=== PATIENT | male | born 1955 | race Caucasian/White ===

== ENCOUNTER → 2018-09-16 | Outpatient (CLI) | payer BC ==
[~2018-09-16] MED LIST: BACL10 PO; CLON1 PO; ELOCON15 GM TOP; IBUP800 PO; LISI5 PO; Metformin HCl500 MG PO; Norco 10-325 T1 EACH PO; POTASSIUM99 MG PO; SIMV10 PO
== END | disposition home or self-care (01) ==
LOC: PLD 10:20 → LAB SHORT 10:20
DX: D04.22 Carcinoma in situ of skin of left ear and external auricular canal (principal)
CPT/HCPCS: 88305

== ENCOUNTER 2019-09-18 09:37 | Day surgery (SDC) | payer BC, MEDICARE ==
[~2019-09-18] VITALS: Ht 177.8 cm; Wt 94.5 kg
[2019-09-18] MEDS ORDERED: LOSA25 PO (09:59)
[2019-09-18] MEDS ORDERED: GABA100 PO (10:01)
[2019-09-18] MEDS ORDERED: CLOP75 PO (15:51)
--- NOTE | 2019-09-18 17:28 | NUR ---
DISCHARGE GONE OVER WITH PT AND , BOTH VERBALIZE UNDERSTANDING OF INSTRUCTIONS. PT UP AND WALKING L GROIN SITE REMAINS SOFT AND NO BLEEDING. SALINE LOCK OUT WITH CATHETER INTACT. PT TO PRIVATE VEHICLE WITH ASSIST OF 1 STAFF.
== END 2019-09-18 23:20 | disposition home or self-care (01) ==
LOC: MHTC 09:37
DX: I70.213 Atherosclerosis of native arteries of extremities with intermittent claudication, bilateral legs (principal); Z88.2 Allergy status to sulfonamides; Z88.0 Allergy status to penicillin; Z88.8 Allergy status to other drugs, medicaments and biological substances
CPT/HCPCS: 37221; 37227; 37228; 75625; 75716; 75774; 85347; 99152; 99153; C1714; C1725; C1760; C1769; C1874; C1876; C1884; C1887; C1894; C2623; J1200; J1644; J2060; J2250; J2405; J3010; J7030; Q9967

== ENCOUNTER → 2020-08-30 | Outpatient (CLI) | payer MEDICARE ==
[~2020-08-30] MED LIST changes: +CLOP75 PO; +GABA100 PO; +LOSA25 PO
[2020-08-30 12:01] LABS: Source, Urine Voided
[2020-08-30 13:34] LABS: Creatinine, Urine Random 99.7 mg/dL (27.00-270.00)
[2020-08-30 13:36] LABS: Microalb/Creat Ratio UR, Rand 10.933 mg/g (0.000-30.000); Microalbumin, Random Urine 10.9 mg/L (0.000-20.000)
[2020-08-30 14:38] LABS: Appearance, Urine Clear (Clear); Bilirubin, Urine Neg (Neg); Blood, Urine Neg (Neg); Color, Urine Yellow (P-Yellow); Glucose Qualitative, Urine 3+ (Neg); Ketones, Urine Neg (Neg); Leukocyte Esterase, Urine 1+ (Neg); Nitrite, Urine Neg (Neg); Protein, Urine Neg (Neg); Urobilinogen, Urine NORM (Normal)
[2020-08-30 14:46] LABS: Bacteria Not Seen /hpf; Red Blood Cells, Urine Not Seen /hpf (0-2); Squamous Epithelial Cells Rare /hpf (Few); White Blood Cells, Urine 0-2 /hpf (0-5)
[2020-08-30 16:07] LABS: BASOPHILS ABSOLUTE AUTO 0.04 K/mm3 (0.00-0.23); BASOPHILS PERCENT AUTO 1 % (0-2); EOSINOPHILS ABSOLUTE AUTO 0.23 K/mm3 (0.00-0.68); EOSINOPHILS PERCENT AUTO 3 % (0-6); Hematocrit 45.6 % (37.0-53.0); Hemoglobin 14.9 g/dL (13.5-17.5); IMMATURE GRAN ABSOLUTE AUTO 0.01 K/mm3 (0.00-0.10); IMMATURE GRAN PERCENT AUTO 0 % (0-1); LYMPHOCYTES ABSOLUTE AUTO 1.35 K/mm3 (0.84-5.20); LYMPHOCYTES PERCENT AUTO 20 % (21-46); MONOCYTES ABSOLUTE AUTO 0.38 K/mm3 (0.16-1.47); MONOCYTES PERCENT AUTO 6 % (4-13); Mean Corpuscular HGB 30.5 pg (26.0-34.0); Mean Corpuscular HGB Conc 32.7 g/dL (31.5-36.5); Mean Corpuscular Volume 93 fL (80-100); Mean Platelet Volume 10.5 fL (9.1-12.4); NEUTROPHILS PERCENT AUTO 70 % (41-73); Platelet Count 266 K/mm3 (150-400); RDW Coefficient Variation 12.8 % (11.7-14.2); Red Blood Cell Count 4.89 M/mm3 (4.30-5.90); White Blood Cell Count 6.71 K/mm3 (4.00-11.30)
[2020-08-30 16:37] LABS: Alanine Aminotransfer (ALT/SGP 74 U/L (12-78); Albumin, Blood 3.9 g/dL (3.4-5.0); Albumin/Globulin Ratio 1.1 (0.8-1.8); Alk Phos 49 U/L (50-136); Anion Gap 7 mmol/L (6-16); Aspartate Aminotrans (AST/SGOT 37 U/L (12-37); Bilirubin, Total 0.5 mg/dL (0.1-1.0); Blood Urea Nitrogen 21 mg/dL (8-24); Bun/Creatinine Ratio 24.6 (12.0-20.0); CHOL/HDL RATIO 3.2; CO2, Blood 23 mmol/L (21-32); Calcium, Blood 9.2 mg/dL (8.5-10.1); Chloride, Blood 108 mmol/L (98-108); Cholesterol 142 mg/dL (50-200); Creatinine, Blood 0.86 mg/dL (0.60-1.20); Globulin, Blood 3.6 g/dL (2.2-4.0); Glomerular Filtration Rate >60 (60-); Glucose, Blood 249 mg/dL (70-99); HDL Cholesterol 45 mg/dL (>39); LDL/HDL RATIO 1.5; Low Density Lipoprotein Chol 68 mg/dL (0-110); Potassium, Blood 4.4 mmol/L (3.5-5.5); Sodium, Blood 138 mmol/L (136-145); Total Protein, Blood 7.5 g/dL (6.4-8.2); Triglycerides 144 mg/dL (30-160); Very Low Density Lipoprot Chol 28 mg/dL (6-32)
== END ==
LOC: LAB SHORT 09:23 → LAB 09:23
PROVIDERS: Nurse Practitioner Family
DX: E11.65 Type 2 diabetes mellitus with hyperglycemia (principal); E78.00 Pure hypercholesterolemia, unspecified; I10 Essential (primary) hypertension
CPT/HCPCS: 80053; 80061; 81001; 82043; 82570; 84443; 85025

== ENCOUNTER 2021-05-02 08:55 | Day surgery (SDC) | payer MEDICARE ==
[~2021-05-02] VITALS: Ht 180.3 cm; Wt 93.2 kg
[~2021-05-02 08:55] MED LIST changes: +Aspir 8181 MG PO; +EZET10 PO; +GLIP2.5ER PO; +TRAZ50 PO
--- NOTE | 2021-05-02 16:03 | NUR ---
FOLLOWED PT BACK TO RECOVERY ROOM, NORCO 2 TABS GIVEN PER ORDER FOR BACK DISCOMFORT.
--- NOTE | 2021-05-02 17:26 | NUR ---
PT SITTING UP AND EATING DINNER. LEFT GROIN SITE STABLE.
--- NOTE | 2021-05-02 17:44 | NUR ---
DR JULIEN IN AND TALKED WITH PT. DISCHARGE INSTRUCTIONS GONE OVER WITH PT, VERBALIZES UNDERSTANDING OF INSTRUCTIONS. PT UP TO BATHROOM, GROIN SITE STABLE.
--- NOTE | 2021-05-02 17:53 | NUR ---
SALINE LOCK REMOVED WITH CATHETER INTACT.
--- NOTE | 2021-05-02 18:02 | NUR ---
PT TO PRIVATE VEHICLE PER W/C WITH DISCHARGE INSTRUCTIONS IN HAND.
== END 2021-05-02 18:00 | disposition home or self-care (01) ==
LOC: MHTC 08:55
DX: I70.223 Atherosclerosis of native arteries of extremities with rest pain, bilateral legs (principal)
CPT/HCPCS: 76937; 85347; 99152; 99153; A9270; C1714; C1725; C1760; C1769; C1887; C1894; C2623; J1644; J2250; J3010; J7030; J7050; Q9967

== ENCOUNTER 2021-06-13 06:53 | Day surgery (SDC) | payer MEDICARE ==
[~2021-06-13] VITALS: Ht 180.3 cm; Wt 93.0 kg
[~2021-06-13 06:53] MED LIST changes: +POTASSIUM GLUCO99 M1 PO; -POTASSIUM99 MG PO
[2021-06-13] MEDS ORDERED: TESTOSTERONE75 GM TD (07:14)
[2021-06-13] MEDS ORDERED: OXYB5 PO (07:14)
--- NOTE | 2021-06-13 12:27 | NUR ---
DR JULIEN IN ROOM TO SEE PT.
--- NOTE | 2021-06-13 13:12 | NUR ---
DISCHARGE INSTRUCTIONS REVIEWED ALL QUESTIONS ANSWERED. 20 G IV DISCONTINUED FROM LEFT AC WITH INTACT CANNULA. NO CHANGES TO R FEMORAL SITE OR R SITE; BOTH SOFT NON-TENDER WITH NO HEMATOMA, NO PULSATILE BLEEDING AND INTACT DRESSINGS. PT ESCORTED OUT VIA WHEELCHAIR ESCORT.
== END 2021-06-13 13:00 | disposition home or self-care (01) ==
LOC: MHTC 06:53
DX: E11.51 Type 2 diabetes mellitus with diabetic peripheral angiopathy without gangrene (principal); I70.213 Atherosclerosis of native arteries of extremities with intermittent claudication, bilateral legs; I10 Essential (primary) hypertension; F17.210 Nicotine dependence, cigarettes, uncomplicated; Z88.0 Allergy status to penicillin; Z88.2 Allergy status to sulfonamides
CPT/HCPCS: 75716; 75774; 76937; 85347; 99152; 99153; C1725; C1769; C1887; C1894; C2623; C9764; J1644; J1885; J2250; J3010; J7030; J7040; J7050; Q9967

== ENCOUNTER → 2023-06-04 | Outpatient (CLI) | payer OTHER ==
[~2023-06-04] MED LIST changes: +OXYB5 PO; +TESTOSTERONE75 GM TD
== END | disposition home or self-care (01) ==
LOC: PLD 14:30 → LAB SHORT 14:30
DX: C44.319 Basal cell carcinoma of skin of other parts of face (principal)
CPT/HCPCS: 88305

== ENCOUNTER 2023-12-06 05:47 | Day surgery (SDC) | payer OTHER ==
[2023-12-06] MEDS ORDERED: Naloxone HCl 0.4MG / ML 1ML Vial ONE (06:16)
[2023-12-06] MEDS ORDERED: Flumazenil 0.1 MG / ML 5ML Vial ONE (06:16)
[2023-12-06] MEDS ORDERED: Midazolam HCl 1MG / ML 2ML Vial ONE (06:16)
[2023-12-06] MEDS ORDERED: NS 1,000 ML IV ONE (06:17)
[2023-12-06] MEDS ORDERED: FentaNYL Citrate 50 MCG/ML 2 ML Injection ONE (06:17)
[2023-12-06 06:30] VITALS: BP 166/84
--- NOTE | 2023-12-06 06:55 | NUR ---
PT HERE FOR ERIK/CARDIOVERSION, PLACED ON MONITOR PT IN SR, EKG PERFORMED TO CONFIRM. DR PULIDO CAME AND DISCUSSSED WITH PT, PROCEDURE CANCELLED. PT WILL HAVE FOLLOW UP ECHO SCHEDULED IN JANUARY SINCE IN [facility].
== END 2023-12-06 08:00 | disposition home or self-care (01) ==
LOC: MHTC 05:47
DX: R07.9 Chest pain, unspecified (principal); I73.9 Peripheral vascular disease, unspecified; I51.7 Cardiomegaly; I51.89 Other ill-defined heart diseases
CPT/HCPCS: 93306; J2250; J2310; J3010; J7030

== ENCOUNTER 2025-03-05 11:02 | Day surgery (SDC) | payer OTHER ==
[~2025-03-05] VITALS: Ht 180.3 cm; Wt 87.0 kg
[2025-03-05] VITALS (12 sets, daily range): BP systolic 100–148; BP diastolic 70–95
[~2025-03-05 11:02] MED LIST changes: +AMARYL PO; +AMARYL1 M1 PO; +Acerola C500 MG PO; +BASAGLAR K100 UNIT/6 SC; +CENTRUM SILVER1 EAC2 PO; +Crestor20 MG PO; +GLUCOSAMINE-CH1 EA48 PO; +HYDACE10B PO; +JARDIANCE25 MG PO; +MAGCHL64ER PO; +METF500C PO; -Metformin HCl500 MG PO; +NARCAN4 M1 NS; -Norco 10-325 T1 EACH PO; +PIOG15 PO; +POTASSIUM GLUCO90 M1 PO; -POTASSIUM GLUCO99 M1 PO; +PSEU120ER PO; +VITAMIN B122500 MC1 PO; +XARELTO20 MG PO
[2025-03-05] MEDS ORDERED: Heparin Sodium 1000 Units/ML 10ML MDV ONE (13:22)
[2025-03-05] MEDS ORDERED: NS 1,000 ML IV ONE ×2 (13:22→13:26)
[2025-03-05] MEDS ORDERED: FentaNYL Citrate 50 MCG/ML 2 ML Injection ONE ×2 (13:26→14:25)
[2025-03-05] MEDS ORDERED: Midazolam HCl 1MG / ML 2ML Vial ONE ×2 (13:26→13:56)
--- NOTE | 2025-03-05 15:45 | NUR ---
assumed care of patient. A&O, right femoral artery site soft and nontender, no hematoma, no bleeding.
--- NOTE | 2025-03-05 16:40 | NUR ---
patient ambulated to bathroom, tolerated well, right groin site unchanged.
--- NOTE | 2025-03-05 16:54 | NUR ---
patient ambulated in room, tolerated well. right groin site unchanged
--- NOTE | 2025-03-05 17:26 | NUR ---
Patient and verbalized understanding of discahrge instructions and precautions. no further questions. IV site dced with catheter intact. Right groin site soft and nontender, no hematoma,no bleeding. Pt taken via wheel cahir to car. driving.
[2025-03-19] MEDS ORDERED: INSULANPEN SC (13:19)
== END 2025-03-05 23:00 | disposition home or self-care (01) ==
LOC: MHTC 11:02
DX: E11.51 Type 2 diabetes mellitus with diabetic peripheral angiopathy without gangrene (principal); I70.222 Atherosclerosis of native arteries of extremities with rest pain, left leg; I25.10 Atherosclerotic heart disease of native coronary artery without angina pectoris; I10 Essential (primary) hypertension; F17.200 Nicotine dependence, unspecified, uncomplicated; E78.5 Hyperlipidemia, unspecified; Z88.1 Allergy status to other antibiotic agents; Z88.0 Allergy status to penicillin; Z88.2 Allergy status to sulfonamides; Z79.899 Other long term (current) drug therapy
CPT/HCPCS: 75625; 75716; 75774; 76937; 93005; 93010; 99152; 99153; C1725; C1760; C1769; C1874; C1887; C1894; C2623; C9765; J1644; J2250; J3010; J7030; Q9967

== ENCOUNTER 2025-03-20 08:20 | Day surgery (SDC) | payer OTHER ==
[~2025-03-20] VITALS: Ht 180.3 cm; Wt 87.1 kg
[2025-03-20] VITALS (7 sets, daily range): BP systolic 140–167; BP diastolic 79–99
[~2025-03-20 08:20] MED LIST changes: +INSULANPEN SC
[2025-03-20] MEDS ORDERED: NS 1,000 ML IV ONE ×2 (08:59→09:08)
[2025-03-20] MEDS ORDERED: NS 500 ML IV ONE (08:59)
[2025-03-20] MEDS ORDERED: Nitroglycerin 2 MG/20 ML BTL ONE (08:59)
[2025-03-20] MEDS ORDERED: Heparin Sodium 1000 Units/ML 10ML MDV ONE ×2 (08:59→10:12)
[2025-03-20] MEDS ORDERED: Midazolam HCl 1MG / ML 2ML Vial ONE ×3 (09:06→09:58)
[2025-03-20] MEDS ORDERED: FentaNYL Citrate 50 MCG/ML 2 ML Injection ONE ×3 (09:06→10:24)
[2025-03-20] MEDS ORDERED: NS 250 ML IV ONE (09:12)
--- NOTE | 2025-03-20 11:18 | NUR ---
pt back to recovery from lab. pt a&o. pt given ice water and ice chips. at bedside. groin site soft and non-tender per pt. no bleeding/hematoma noted.
--- NOTE | 2025-03-20 11:42 | NUR ---
PT LAYING IN BED WITH FAMILY MEMBER IN ROOM AND CALL LIGHT IN REACH. PT DENIES CHEST PAIN. LEFT FEM GROIN SITE SOFT NON-TENDER WITH NO HEMATOMA, NO PULSATILE BLEEDING AND INTACT DRESSING. BILAT PT AND DP PULSES ARE DOPPLER.
--- NOTE | 2025-03-20 12:08 | NUR ---
NO CHANGES TO LEFT FEM GROIN SITE; HOB UP TO 45 DEGREES. L PT STILL DOPPLER PULSE.
--- NOTE | 2025-03-20 13:45 | NUR ---
NO CHANGES WERE NOTED TO LEFT FEM GROIN SITE. RIGHT DP WAS DOPPLER PULSE. DISCHARGE INSTRUCTIONS REVIEWED ALL QUESTIONS ANSWERED.20 IV DISCONTINUED FROM LEFT AC WITH INTACT CANNULA. LEFT FEMORAL GROIN SITE WAS STILL SOFT WITH NO HEMATOMA, NO PULSITILE BLEEDING AND INTACT DRESSING. PT WAS ESCORTED OUT VIA WHEELCHAIR ESCORT.
== END 2025-03-20 13:40 | disposition home or self-care (01) ==
LOC: MHTC 08:20
DX: E11.51 Type 2 diabetes mellitus with diabetic peripheral angiopathy without gangrene (principal); I70.213 Atherosclerosis of native arteries of extremities with intermittent claudication, bilateral legs; I25.10 Atherosclerotic heart disease of native coronary artery without angina pectoris; E78.00 Pure hypercholesterolemia, unspecified; Z87.891 Personal history of nicotine dependence; Z88.0 Allergy status to penicillin; Z88.1 Allergy status to other antibiotic agents; Z88.2 Allergy status to sulfonamides; Z79.4 Long term (current) use of insulin; Z79.02 Long term (current) use of antithrombotics/antiplatelets; Z79.84 Long term (current) use of oral hypoglycemic drugs; Z79.899 Other long term (current) drug therapy
CPT/HCPCS: 37220; 37228; 75716; 75774; 76937; 99152; 99153; C1725; C1760; C1769; C1874; C1887; C1894; C9765; J1644; J2250; J3010; J7030; J7050; Q9967